=== PATIENT | female | born 1945 | race Caucasian/White ===

== ENCOUNTER 2017-04-21 17:27 | Emergency (ER) | payer MEDICARE, SELFPAY | END 2017-04-21 19:19 | disposition home or self-care (01) | PROVIDERS: Emergency Provider Emergency Medicine; Family Provider Internal Medicine; Visit Provider Emergency Medicine | DX: R21 Rash and other nonspecific skin eruption (principal) | CPT/HCPCS: 96372; 99201; J1030 ==

== ENCOUNTER 2020-11-25 11:50 | Emergency (ER) | payer MEDICARE, SELFPAY ==
[2020-11-25 12:37] VITALS: BP 118/79; PULSE 99; RESP 18; TEMP 37.3; O2SAT 96; BMI 23.4
--- NOTE | 2020-11-25 12:41 | HMH.EDUTC ---
[facility] [place] Clinical Impression: Encounter for laboratory testing for COVID-19 virus Disposition: Home, Self-Care Condition on Discharge: Good Instructions: DI for COVID-19 (Suspected or Confirmed ), Coronavirus Disease 2019, Preventing the Spread of Coronavirus Discharge Instructions Additional Instructions: *Monitor Temp, Over the counter Motrin or Tylenol as directed/as needed Tylenol every 4 hours and Motrin every 6 hours (as long as your family doctor has told you that you can take it) for fever or pain. and straight to ER if unable to lower temp less than 101.0 after medication given Follow up IMMEDIATELY for new or worsening symptoms or no Noticeable improvement over the next 48-72 hours. 911 for difficulty breathing or swallowing You were tested for today for COVID19 your test result should be back in the next 24-48 hours, you may call to the [facility] to see if your test results are back in the next 48 hours [phone] [facility] hours are 9am-9pm You was given a handout with instructions for Self Quarantine and Self isolation for while you wait on test results and what to do if they are positive If you are positive the Health Dept will be contacting you also Referrals: Provider,Referral, [Primary Care Provider] - As needed Time of Disposition: 13:03 Medical Decision Making - Rolly Inquiry Pt receiving controlled substance: No Rolly was queried for this patient: No Vital Signs: 11/25/20 12:37 Temperature 99.1 F Temperature Source Oral Pulse Rate [Left] 99 H Respiratory Rate 18 Blood Pressure [Right Arm] 118/79 Blood Pressure Mean [Right Arm] 92 02 Sat by Pulse Oximetry 96 Orders (Tests/Meds): ORDERS Category Date Time Status Covid-19 Nasal PCR ([facility]) Routine Lab 11/25/20 12:54 Received [facility] [place] HPI - General Stated complaint: covid exposure Time Seen by Provider: 11/25/20 12:41 Mode of Arrival: Ambulatory Source of Information: Patient Limitations: No Limitations Description of Symptoms (Recalled from Triage Doc. by RN): pt was exposed to covid positive in law last sat. pt started having a cough this am. HEENT Symptoms (Recalled from RN notes): No Resp Symptoms (Recalled from RN notes): Yes (cough) Skin Symptoms (Recalled from RN notes): No MS Symptoms (Recalled from RN notes): No Functional Status (Recalled from RN notes): na - History of Present Illness Provider Complaint: Patient states that she was around someone about a week ago that tested positive for COVID States that she started with a dry nagging cough today and wanted to get tested denies any other sympotms - Related Data Allergies Allergy/AdvReac Type Severity Reaction Status Date / Time No Known Allergies Allergy Unverified 04/16/17 14:56 - Worker's Comp Is this a Worker's Comp case?: No [facility] History - Hepatitis A Screen Drug use history?: No High risk sexual behaviors?: No History of sexually transmitted infection?: No Currently employed?: No Childcare worker?: No Do you have indoor plumbing?: Yes Do you have electricity?: Yes Attestation statement:: This patient has been screened for Hepatitis A risk factors. I have reviewed the patient's past medical history: Yes ROS Obtained: Yes All systems reviewed & no additional complaints, Yes Systems reviewed as appropriate & no additional complaints - Constitutional Constitutional: Reports system reviewed and no additional complaints, except as docu, Denies body ache, Denies chills, Denies fever(s) Physical Exam - General General appearance: alert, in no apparent distress - Respiratory Respiratory exam: Present: normal lung sounds bilaterally. Absent: respiratory distress - Cardiovascular Cardiovascular exam: Present: regular rate, normal rhythm. Absent: JVD - Abdominal Exam Abdominal exam: Present: soft, normal bowel sounds. Absent: distention, tenderness, guarding - Neurological Exam Neurological exam: Present: alert, oriented X3
[2020-11-25 13:03] VITALS: BP 115/74; PULSE 101; RESP 16; TEMP 37.2
--- NOTE | 2020-11-28 09:55 | PC.NURSE ---
PATIENT NOTIFIED OF POSITIVE COVID TEST AT THIS TIME
== END 2020-11-25 13:05 | disposition home or self-care (01) ==
PROVIDERS: Emergency Provider Nurse Practitioner
DX: U07.1 COVID-19 (principal)
CPT/HCPCS: G0463; 99202; U0003

== ENCOUNTER 2024-11-16 12:56 | Emergency (ER) | payer MEDICARE, SELFPAY ==
--- NOTE | 2024-11-16 13:06 | ED_ITS ---
Discharge Plan Disposition Patient Disposition: Home, Self-Care Condition: Good Referrals Follow up/Referrals: Toby Eddy MD [Staff Physician, General Surgery] - See instructions Jl Bull DO [Staff Physician, Family Practice] - See instructions Provider,MD Barak [Primary Care Provider, Medical] - See instructions Activity Restrictions/Add. Instructions Additional Instructions/Restrictions: As we discussed please follow-up with Dr. Bautista in [place]. If he is unable to see you fairly soon I have given you the name of Dr. Rebollar as an alternative. I have also referred you to general surgery for your inguinal hernia. And I have given you the name of Dr. Bull to establish primary care. If you have any persistent new or worsening signs or symptoms follow-up with them or return to the ER as needed. Clinical Impressions Clinical Impression: Mesenteric panniculitis, Elevated lipase Inguinal hernia Qualifiers: Obstruction and gangrene presence: without obstruction or gangrene Laterality: unilateral Instructions Patient Instructions: DI for Acute Abdominal Pain Print Language Print Language: Lao Discharge ED Provider: Desean Wood Adult HPI <NING Snow - Last Filed: 11/16/24 15:45> General Chief complaint: Abdominal Pain Stated complaint: Lower right abdominal pain, vomiting, Time Seen by Provider: 11/16/24 13:06 History of Present Illness HPI narrative: Patient presents for evaluation of right lower quadrant abdominal pain. Patient states that her last bowel movement was Saturday. She states that since then she has felt like there is a rock in my belly . Patient states that the pain is in the right lower quadrant. She has had nausea but no vomiting or diarrhea. She is passing gas. She denies any fever chills shortness of breath hemoptysis hematochezia melena hematemesis hematuria dysuria. Related Data Allergies Allergy/AdvReac Type Severity Reaction Status Date / Time No Known Allergies Allergy Unverified 04/16/17 14:56 [facility] <NING Snow - Last Filed: 11/16/24 15:45> [facility] Disclaimer: The information contained in this section may have been updated after the patient was seen, as this information can be updated by other users. Social History (Updated 11/16/24 @ 14:53 by NING Snow) Smoking Status: Never smoker alcohol intake: never current occupational status: retired Travel in the last 8 weeks?: None <NING Snow - Last Filed: 11/16/24 15:45> ROS Obtained: Yes Systems reviewed as appropriate & no additional complaints except as documented Physical Exam <NING Snow - Last Filed: 11/16/24 15:45> General General appearance: alert and in no apparent distress Respiratory Respiratory exam: Present normal lung sounds bilaterally Cardiovascular Cardiovascular exam: Present regular rate Neurological Exam Neurological exam: Present alert and oriented X3 Medical Decision Making <NING Snow - Last Filed: 11/16/24 15:45> Medical Records Medical records reviewed: Yes I reviewed the patient's medical records. Screening: Per USPSTF and CDC recommendations, given the prevalence of disease in our region, it is our hospital?s policy to screen for HIV and viral Hepatitis for all patients aged 18 and over and those with ongoing risk factors. Rolly Inquiry Pt receiving controlled substance: No Vital Signs: 11/16/24 13:11 11/16/24 13:30 11/16/24 14:00 Temperature 98.1 F Temperature Source Oral Pulse Rate 90 80 Pulse Rate [Left Radial] 100 H Respiratory Rate 20 18 Blood Pressure 115/67 134/66 Blood Pressure [Right Arm] 129/73 Blood Pressure Mean 84 77 Blood Pressure Mean [Right Arm] 91 Blood Pressure Source Blood Pressure Position 02 Sat by Pulse Oximetry 96 96 95 Oxygen Delivery Method Room Air 11/16/24 14:15 11/16/24 15:10 Temperature 98.0 F Temperature Source Oral Pulse Rate 80 74 Pulse Rate [Left Radial] Respiratory Rate 18 Blood Pressure 115/58 L 114/58 L Blood Pressure [Right Arm] Blood Pressure Mean 87 Blood Pressure Mean [Right Arm] Blood Pressure Source Automatic Cuff Blood Pressure Position Sitting 02 Sat by Pulse Oximetry 95 Oxygen Delivery Method Room Air Lab Data Lab results reviewed: Yes I reviewed the patient's lab results. Lab Results 11/16/24 13:12: WBC 8.3, RBC 4.71, Hgb 14.0, Hct 43.8, MCV 93.0, MCH 29.7, MCHC 32.0, RDW 13.5, Plt Count 276, MPV 8.9, Neut % (Auto) 74.2, Lymph % (Auto) 17.8, Bartholomew % (Auto) 7.3, Eos % (Auto) 0.4, Baso % (Auto) 0.1, Neut # (Auto) 6.2, Lymph # (Auto) 1.5, Bartholomew # (Auto) 0.6, Eos # (Auto) 0.0, Baso # (Auto) 0.0, PT 11.0, INR 0.99, Sodium 131 L, Potassium 3.4 L, Chloride 93 L, Carbon Dioxide 31 H, Anion Gap 10.4, BUN 28 H, Creatinine 0.80, Estimated Creat Clear 40, Estimated GFR 70, Est GFR ( Amer) 84, Glucose 104 H, Calcium 10.0, Total Bilirubin 1.3, AST 79 H, ALT 90 H, Alkaline Phosphatase 86, Total Protein 8.3 H, Albumin 4.6, Globulin 3.7 H, Albumin/Globulin Ratio 1.2, Lipase 4862 H, Procalcitonin 0.662, Urine Color Yellow, Urine Appearance Clear, Urine pH 6.0, Ur Specific [place] <= 1.005, Urine Protein Negative, Urine Glucose (UA) Negative, Urine Ketones Negative, Urine Blood Trace-i, Urine Nitrate Negative, Urine Bilirubin Negative, Urine Urobilinogen 0.2, Ur Leukocyte Esterase Negative, Urine RBC Occasional, Urine WBC None, Ur Squamous Epith Cells Occasional, Urine Bacteria None 11/16/24 13:12 11/16/24 13:12 Orders (Tests/Meds): ED MEDICATIONS Discontinued Medications Generic Name Dose Route Start Last Admin Trade Name Herminioq PRN Reason Stop Dose Admin Acetaminophen 1,000 mg 11/16/24 13:20 11/16/24 13:31 Acetaminophen 500mg Tab PO 11/16/24 13:21 1,000 mg ONCE ONE Administration Sodium Chloride 1,000 mls @ 999 mls/hr 11/16/24 13:20 11/16/24 14:00 Sod Chlor 0.9% 1000ml Bag IV 11/16/24 14:20 999 mls/hr .Q1H1M ONE Administration Iopamidol 75 ml 11/16/24 13:52 11/16/24 13:53 Iopamidol-370 (76%);100ml Bottle IV 11/16/24 13:53 75 ml ONCE ONE Administration Ketorolac Tromethamine 15 mg 11/16/24 13:20 11/16/24 13:30 Ketorolac 30mg/Ml Vial IV 11/16/24 13:21 15 mg ONCE ONE Administration Ondansetron HCl 4 mg 11/16/24 13:20 11/16/24 13:30 Ondansetron 4mg/2ml Vial IV 11/16/24 13:21 4 mg ONCE ONE Administration Sodium Chloride 10 ml 11/16/24 13:52 11/16/24 13:53 Sodium Chloride 0.9% 10ml Syr (Rad Only) IV 11/16/24 13:53 10 ml ONCE ONE Administration ORDERS Category Date Time Status CT abdomen pelvis w con Stat Cat Scan 11/16/24 13:20 Completed CBC w/Auto Diff [Complete Blood Count Auto Diff] Stat Lab 11/16/24 13:12 Completed CMP [Comprehensive Metabolic Panel] Stat Lab 11/16/24 13:12 Completed INR [Prothrombin Time INR] Stat Lab 11/16/24 13:12 Completed Lipase Stat Lab 11/16/24 13:12 Completed Procalcitonin Stat Lab 11/16/24 13:12 Completed UA [Urinalysis and Microscopic] Stat Lab 11/16/24 13:12 Completed Medical Decision Narrative: In summary patient is a 39-year-old female who presents to the emergency department for evaluation of right lower quadrant abdominal pain. Patient has no known medical problems is on no home medications and has not seen a doctor in many years . Patient has had a total abdominal hysterectomy but does not know if she still has an appendix. Patient is hemodynamically stable upon arrival, afebrile. Physical exam is remarkable for right-sided abdominal tenderness on palpation however she is more focally tender in the right lower quadrant however there is no rebound no guarding no rigidity bowel sounds are normal active.. Differential diagnosis includes constipation versus appendicitis versus bowel obstruction versus kidney stone versus urinary tract infection versus colitis etc. Initial workup will be conducted with hematologic labs urinalysis CT scan abdomen pelvis. Initial interventions include crystalloid bolus Tylenol Toradol Zofran. Initial workup reviewed by me and her hematologic labs significant for a normal white count with no neutrophilic shift, a sodium of 131 potassium 3.4 chloride of 93 CO2 of 31 BUN of 28 glucose of 104 AST is 79 ALT of 90 bilirubin is 1.3 alk phos 86 and her lipase is 4862 urinalysis is bland and my informal interpretation of her CT scan abdomen pelvis shows haziness of the mesentery which is nonspecific but could represent mesenteric panniculitis, there is no evidence of acute pancreatitis on imaging, her appendix is absent, she does not have a large stool burden, she has a nonobstructed left inguinal hernia all prior to radiology read. Please see final read for formal interpretation. Upon repeat evaluation reports improvement in her abdominal discomfort after initial intervention. Patient has no epigastric tenderness and is tolerating oral intake. Given this patient is appropriate for discharge with follow-up with her crushing foreman for further management and care of the mesenteric panniculitis, referral to general surgery for consultation about her left inguinal hernia which is asymptomatic and referral to Dr. Bull for establishing PCP. If patient has persistent new or worsening signs or symptoms patient was instructed to return to the emergency department for further evaluation and care. <Desean Wood MD - Last Filed: 11/16/24 19:45> Vital Signs: 11/16/24 13:11 11/16/24 13:30 11/16/24 14:00 Temperature 98.1 F Temperature Source Oral Pulse Rate 90 80 Pulse Rate [Left Radial] 100 H Respiratory Rate 20 18 Blood Pressure 115/67 134/66 Blood Pressure [Right Arm] 129/73 Blood Pressure Mean 84 77 Blood Pressure Mean [Right Arm] 91 Blood Pressure Source Blood Pressure Position 02 Sat by Pulse Oximetry 96 96 95 Oxygen Delivery Method Room Air 11/16/24 14:15 11/16/24 15:10 Temperature 98.0 F Temperature Source Oral Pulse Rate 80 74 Pulse Rate [Left Radial] Respiratory Rate 18 Blood Pressure 115/58 L 114/58 L Blood Pressure [Right Arm] Blood Pressure Mean 87 Blood Pressure Mean [Right Arm] Blood Pressure Source Automatic Cuff Blood Pressure Position Sitting 02 Sat by Pulse Oximetry 95 Oxygen Delivery Method Room Air Lab Data Lab Results 11/16/24 13:12: WBC 8.3, RBC 4.71, Hgb 14.0, Hct 43.8, MCV 93.0, MCH 29.7, MCHC 32.0, RDW 13.5, Plt Count 276, MPV 8.9, Neut % (Auto) 74.2, Lymph % (Auto) 17.8, Bartholomew % (Auto) 7.3, Eos % (Auto) 0.4, Baso % (Auto) 0.1, Neut # (Auto) 6.2, Lymph # (Auto) 1.5, Bartholomew # (Auto) 0.6, Eos # (Auto) 0.0, Baso # (Auto) 0.0, PT 11.0, INR 0.99, Sodium 131 L, Potassium 3.4 L, Chloride 93 L, Carbon Dioxide 31 H, Anion Gap 10.4, BUN 28 H, Creatinine 0.80, Estimated Creat Clear 40, Estimated GFR 70, Est GFR ( Amer) 84, Glucose 104 H, Calcium 10.0, Total Bilirubin 1.3, AST 79 H, ALT 90 H, Alkaline Phosphatase 86, Total Protein 8.3 H, Albumin 4.6, Globulin 3.7 H, Albumin/Globulin Ratio 1.2, Lipase 4862 H, Procalcitonin 0.662, Urine Color Yellow, Urine Appearance Clear, Urine pH 6.0, Ur Specific [place] <= 1.005, Urine Protein Negative, Urine Glucose (UA) Negative, Urine Ketones Negative, Urine Blood Trace-i, Urine Nitrate Negative, Urine Bilirubin Negative, Urine Urobilinogen 0.2, Ur Leukocyte Esterase Negative, Urine RBC Occasional, Urine WBC None, Ur Squamous Epith Cells Occasional, Urine Bacteria None Orders (Tests/Meds): ED MEDICATIONS Discontinued Medications Generic Name Dose Route Start Last Admin Trade Name Freq PRN Reason Stop Dose Admin Acetaminophen 1,000 mg 11/16/24 13:20 11/16/24 13:31 Acetaminophen 500mg Tab PO 11/16/24 13:21 1,000 mg ONCE ONE Administration Sodium Chloride 1,000 mls @ 999 mls/hr 11/16/24 13:20 11/16/24 14:00 Sod Chlor 0.9% 1000ml Bag IV 11/16/24 14:20 999 mls/hr .Q1H1M ONE Administration Iopamidol 75 ml 11/16/24 13:52 11/16/24 13:53 Iopamidol-370 (76%);100ml Bottle IV 11/16/24 13:53 75 ml ONCE ONE Administration Ketorolac Tromethamine 15 mg 11/16/24 13:20 11/16/24 13:30 Ketorolac 30mg/Ml Vial IV 11/16/24 13:21 15 mg ONCE ONE Administration Ondansetron HCl 4 mg 11/16/24 13:20 11/16/24 13:30 Ondansetron 4mg/2ml Vial IV 11/16/24 13:21 4 mg ONCE ONE Administration Sodium Chloride 10 ml 11/16/24 13:52 11/16/24 13:53 Sodium Chloride 0.9% 10ml Syr (Rad Only) IV 11/16/24 13:53 10 ml ONCE ONE Administration ORDERS Category Date Time Status CT abdomen pelvis w con Stat Cat Scan 11/16/24 13:20 Completed CBC w/Auto Diff [Complete Blood Count Auto Diff] Stat Lab 11/16/24 13:12 Completed CMP [Comprehensive Metabolic Panel] Stat Lab 11/16/24 13:12 Completed INR [Prothrombin Time INR] Stat Lab 11/16/24 13:12 Completed Lipase Stat Lab 11/16/24 13:12 Completed Procalcitonin Stat Lab 11/16/24 13:12 Completed UA [Urinalysis and Microscopic] Stat Lab 11/16/24 13:12 Completed Medical Decision Narrative: In summary patient is a 39-year-old female who presents to the emergency department for evaluation of right lower quadrant abdominal pain. Patient has no known medical problems is on no home medications and has not seen a doctor in many years . Patient has had a total abdominal hysterectomy but does not know if she still has an appendix. Patient is hemodynamically stable upon arrival, afebrile. Physical exam is remarkable for right-sided abdominal tenderness on palpation however she is more focally tender in the right lower quadrant however there is no rebound no guarding no rigidity bowel sounds are normal active.. Differential diagnosis includes constipation versus appendicitis versus bowel obstruction versus kidney stone versus urinary tract infection versus colitis etc. Initial workup will be conducted with hematologic labs urinalysis CT scan abdomen pelvis. Initial interventions include crystalloid bolus Tylenol Toradol Zofran. Initial workup reviewed by me and her hematologic labs significant for a normal white count with no neutrophilic shift, a sodium of 131 potassium 3.4 chloride of 93 CO2 of 31 BUN of 28 glucose of 104 AST is 79 ALT of 90 bilirubin is 1.3 alk phos 86 and her lipase is 4862 urinalysis is bland and my informal interpretation of her CT scan abdomen pelvis shows haziness of the mesentery which is nonspecific but could represent mesenteric panniculitis, there is no evidence of acute pancreatitis on imaging, her appendix is absent, she does not have a large stool burden, she has a nonobstructed left inguinal hernia all prior to radiology read. Please see final read for formal interpretation. Upon repeat evaluation reports improvement in her abdominal discomfort after initial intervention. Patient has no epigastric tenderness and is tolerating oral intake. Given this patient is appropriate for discharge with follow-up with her crushing foreman for further management and care of the mesenteric panniculitis, referral to general surgery for consultation about her left inguinal hernia which is asymptomatic and referral to Dr. Bull for establishing PCP. If patient has persistent new or worsening signs or symptoms patient was instructed to return to the emergency department for further evaluation and care. I was consulted by the IRENE, and we discussed the complexity of the problems being addressed. I approve the treatment and management plan for this patient's care in the emergency department, thus performing a substantive portion of the medical decision making. Desean Wood MD Critical Care <NING Snow - Last Filed: 11/16/24 15:45> Critical Care Time Critical Care Time: No
[2024-11-16 13:11] VITALS: BP 129/73; PULSE 100; RESP 20; TEMP 36.7; O2SAT 96; BMI 23.4
--- NOTE | 2024-11-16 13:20 | CT_ITS ---
FINAL REPORT TECHNIQUE: After the administration of intravenous contrast, axial images were obtained through the abdomen and pelvis by computed tomography. This study was performed with technique to keep radiation doses as low as reasonably achievable, (ALARA). Individualized dose reduction techniques using automated exposure control or adjustment of the MA and/or KV according to the patient's size were employed. CLINICAL HISTORY: Right lower quadrant abdominal pain FINDINGS: Abdomen: The lung bases are clear. The liver is normal in size and attenuation. The spleen and gallbladder are unremarkable. The adrenals are normal. The pancreas is unremarkable. The kidneys enhance appropriately. There is fullness of the renal pelvises bilaterally, suspected parapelvic renal cysts as opposed to hydronephrosis. The aorta is normal in caliber. There is no free fluid or adenopathy. Hazy density is seen at the mesenteric root which may represent mesenteric panniculitis. Acute inflammatory process such as pancreatitis is considered much less likely. There is no evidence of bowel obstruction. Pelvis: The appendix is not identified and may have been removed at time of hysterectomy. The urinary bladder is unremarkable. There is no free fluid or adenopathy. There is a small left inguinal hernia extending to the left labia. IMPRESSION: No bowel obstruction. Hazy density in the mesentery, favor mesenteric panniculitis. Reviewed, Interpreted and Dictated by Leeroy Armendariz MD Transcribed by Katie Peña Authenticated and [facility]
[2024-11-16 13:25] LABS: Microscopic, Urine URINE MICROSCOPIC (MICROSCOPIC)
[2024-11-16 13:29] LABS: Albumin Level 4.6 g/dl (3.5-5.0); Chloride 93 mmol/L (98-107); Potassium 3.4 mmoL/L (3.5-5.1); Sodium 131 mmol/L (136-145)
[2024-11-16 13:30] VITALS: BP 115/67; PULSE 90; RESP 18; O2SAT 96
[2024-11-16] MEDS: ONDANSETRON 4MG/2ML VIAL 4 MG IV (13:30)
[2024-11-16] MEDS: KETOROLAC 30MG/ML VIAL 15 MG IV (13:30)
[2024-11-16 13:31] LABS: Blood Urea Nitrogen 28 mg/dl (7-17); Creatinine Clearance Estimated 40 mL/min (50-200); Creatinine,Serum 0.80 mg/dl (0.52-1.04); Estimated Glomerular Filt Rate 70 ml/min (>60); GFR (African American) 84 ML/MIN (>60); Hematocrit 43.8 % (37.0-47.0); Hemoglobin 14.0 g/dL (12.2-16.2); Immature Granulocytes % 0.2 %; Mean Corpuscular HGB Conc 32.0 g/dL (31.8-35.4); Mean Corpuscular Hemoglobin 29.7 pg (27.0-31.2); Mean Corpuscular Volume 93.0 fl (81-99); Nucleated Red Blood Cells % 0 %; Platelet Count 276 K/mm3 (142-424); Red Blood Count 4.71 M/mm3 (4.20-5.40); Red Cell Distribution Width-SD 45.9 fL; White Blood Count 8.3 K/mm3 (4.8-10.8)
[2024-11-16] MEDS: ACETAMINOPHEN 500MG TAB 1000 MG PO (13:31)
[2024-11-16 13:32] LABS: Alanine Aminotransferase 90 U/L (12-78); Albumin/Globulin Ratio 1.2 (1.1-1.8); Alkaline Phosphatase 86 U/L (38-126); Anion Gap 10.4 mEq/L (5-15); Aspartate Amino Transferase 79 U/L (14-36); Bilirubin,Total 1.3 mg/dl (0.2-1.3); Bilirubin,Urine Negative (Negative); Carbon Dioxide 31 mmol/L (22.0-30.0); Color,Urine YELLOW (Yellow); Globulin 3.7 g/dL (1.3-3.2); Glucose,Urine (UA) Negative (Negative); Ketones,Urine Negative (Negative); Leukocyte Esterase,Urine Negative (Negative); PH,Urine 6.0 (5.0-8.5); Protein,Urine Negative (Negative); Specific Gravity, Urine <= 1.005 (1.005-1.030); Total Protein,Serum 8.3 g/dl (6.3-8.2); Urobilinogen,Urine 0.2 EU/dl (0.2)
[2024-11-16 13:33] LABS: Calcium 10.0 mg/dl (8.4-10.2); Glucose 104 mg/dl (74-100)
[2024-11-16 13:42] LABS: RBC,Urine Occasional #/hpf (0-3)
[2024-11-16 13:43] LABS: Squamous Epithelial Cell,Urine Occasional #/hpf (0-5)
[2024-11-16] MEDS: SODIUM CHLORIDE 0.9% 10ML SYR (RAD ONLY) 10 ML IV (13:53)
[2024-11-16] MEDS: IOPAMIDOL-370 (76%);100ML BOTTLE 75 ML IV (13:53)
[2024-11-16 14:00] VITALS: BP 134/66; PULSE 80; O2SAT 95
[2024-11-16] MEDS: 0.9 % SODIUM CHLORIDE 1000ML 1,000 ML 999 ML IV (14:00)
--- NOTE | 2024-11-16 14:08 | PC.NURSE ---
pt returned from ct
[2024-11-16 14:15] VITALS: BP 115/58; PULSE 80; O2SAT 95
[2024-11-16 15:10] VITALS: BP 114/58; PULSE 74; RESP 18; TEMP 36.7; O2SAT 95
[2024-11-16 15:14] LABS: INR 0.99 (0.9-1.1); Lipase 4862 U/L (23-300); Prothrombin Time 11.0 seconds (10.1-12.5)
--- NOTE | 2024-11-16 15:36 | PC.NURSE ---
critical called from MD tigre notifed
[2024-11-16 17:21] LABS: Procalcitonin 0.662 ng/mL (0.0-2.0)
== END 2024-11-16 15:10 | disposition home or self-care (01) ==
PROVIDERS: Physician Assistant; Emergency Provider Student in an Organized Health Care Education/Training Program
DX: K40.90 Unilateral inguinal hernia, without obstruction or gangrene, not specified as recurrent (principal); R74.8 Abnormal levels of other serum enzymes; K65.4 Sclerosing mesenteritis
CPT/HCPCS: 74177; 80053; 81001; 83690; 84145; 85025; 85610; 96361; 96374; 96375; 99285; J1885; J2405; J7030; Q9967

== ENCOUNTER 2024-11-24 15:17 | Outpatient (CLI) | payer MEDICARE, SELFPAY ==
[2024-11-24 18:37] LABS: Albumin Level 3.5 g/dl (3.5-5.0); Chloride 100 mmol/L (98-107)
[2024-11-24 18:38] LABS: Potassium 4.1 mmoL/L (3.5-5.1); Sodium 136 mmol/L (136-145)
[2024-11-24 18:40] LABS: Alanine Aminotransferase 21 U/L (12-78); Alkaline Phosphatase 92 U/L (38-126); Anion Gap 7.1 mEq/L (5-15); Aspartate Amino Transferase 27 U/L (14-36); Blood Urea Nitrogen 19 mg/dl (7-17); Carbon Dioxide 33 mmol/L (22.0-30.0); Creatinine,Serum 0.60 mg/dl (0.52-1.04); Estimated Glomerular Filt Rate 97 ml/min (>60); GFR (African American) 117 ML/MIN (>60)
[2024-11-24 18:41] LABS: Albumin/Globulin Ratio 0.9 (1.1-1.8); Bilirubin,Total < 0.1 mg/dl (0.2-1.3); Calcium 10.1 mg/dl (8.4-10.2); Globulin 3.7 g/dL (1.3-3.2); Glucose 85 mg/dl (74-100); Lipase 420 U/L (23-300); Total Protein,Serum 7.2 g/dl (6.3-8.2)
== END 2024-11-24 23:59 | disposition home or self-care (01) ==
LOC: LAB.DROPOF 11-25 11:14
PROVIDERS: PCP Internal Medicine; Visit Provider Internal Medicine
DX: R74.8 Abnormal levels of other serum enzymes (principal); R74.01 Elevation of levels of liver transaminase levels
CPT/HCPCS: 80053; 83690

== ENCOUNTER 2024-12-16 07:23 | Outpatient (CLI) | payer MEDICARE, SELFPAY ==
--- NOTE | 2024-12-16 07:30 | US_ITS ---
FINAL REPORT CLINICAL HISTORY: Pancreatitis COMPARISON: CT of the abdomen and pelvis dated 11/16/2024 FINDINGS: Sonographic images of the right upper quadrant were obtained. The pancreas is partially obscured.The liver has an unremarkable appearance. Gallstones are present in the gallbladder. There is no evidence of biliary ductal dilatation.The common duct measures 2 mm. No gallbladder wall thickening or pericholecystic fluid is identified. Limited images of the right kidney are unremarkable. IMPRESSION: Gallstones are present in the gallbladder without evidence of biliary ductal dilatation, gallbladder wall thickening or pericholecystic fluid. The pancreas is difficult to visualize but no gross abnormality is identified. Reviewed, Interpreted and Dictated by Eladio Priest MD Transcribed by Poppy Elkins Authenticated and [facility]
== END 2024-12-16 23:59 | disposition home or self-care (01) ==
LOC: RAD 07:24
PROVIDERS: PCP Internal Medicine; Visit Provider Internal Medicine
DX: K80.20 Calculus of gallbladder without cholecystitis without obstruction (principal); K85.90 Acute pancreatitis without necrosis or infection, unspecified
CPT/HCPCS: 76705

== ENCOUNTER 2025-01-27 20:45 | Emergency (ER) | payer MEDICARE, SELFPAY ==
[2025-01-27 21:30] VITALS: BP 168/77; PULSE 90; RESP 16; TEMP 37; O2SAT 97; BMI 21.2
--- OUTSIDE RECORDS SUMMARY | 2025-01-27 21:45 | XMS_ITS | Data Portability ---
Author Organization [facility] ADMIN Address [address] [place] [id number] Assessment No assessment recorded. Plan of Treatment Reminders Order Date Submit Date Provider Last Modified By Organization Details Last Modified Time Details Appointments None recorded. Lab None recorded. Referral None recorded. Procedures sigmoidosc opy, flexible (PROC) [address] , [facility] [address] [facility] [address], [place], [address], 16:34:15 Surgeries None recorded. Imaging None recorded. Medication Orders None recorded. Patient TargetsNo targets recorded. Patient InstructionsNo instructions recorded. Reason for Referral None Reported. Results Created Date Observation Date Name Description Value Unit Range Abnormal Flag Note LastModifiedBy Organization Detail LastModifiedTime Result Notes None recorded. Procedures Surgical History Date Name Laterality Status Provider Name and Address Organization Details Recorded Time 08/09/19 24 Flexible Sigmoidoscopy completed Aleida Hernandez [facility] [place] 08/20/2023 16:34:57 Hysterectomy completed Heike Lopez [facility] [place] 12/18/2022 09:59:59 Imaging Results None recorded. Procedure Notes None recorded. Medical Equipment None Reported. Allergies No known drug allergies Medications Name Sig Start Date Stop Date Status Note LastModified by Organization Details LastModified Time Miralax 17 gram/dose oral powder Take 17 g by oral route as directed for 2 days. 12/18 completed Not Available Not Available Not Available Dulcolax (bisacodyl ) 5 mg tablet,del ayed release Take 2 tablets by oral route as directed for 1 day. 12/18 completed Not Available Not Available Not Available Vitals Date Recorded Body height Body mass index (BMI) Body weight Body temperature Oxygen saturation Oxygen saturation in Arterial blood by Pulse oximetry Heart rate Systolic And Diastolic Provider Name and Address Organization Details Last Updated DateTime 3 152.4 cm 22.7 kg/m2 83997.4 3 g 97 [degF] 97 % 97 % 89 /min 142/76 mm[Hg] Heike Lopez [place] - [place] [facility] [place] 3 09:58:55 Social History None recorded. Functional Status Question Answer Note LastModified by Organization D etails LastModified Time What is your level of alcohol consumption? None [email or web address] Information not available 12/18/2022 Mental Status None recorded. Family History Nothing Reported. Medical History Condition Response Coronary Artery Disease N None N Gout N Colon Cancer N Kidney Stones N Hyperthyroidism N Hypothyroidism N Depression N COPD N Osteoporosis/Osteopenia N Diverticulitis/Diverticulosis N Colon Polyps N Anxiety Disorder N Diabetes N Bleeding Disorder N Arthritis N Seizures/Epilepsy N Tuberculosis N Hyperlipidemia N Cancer N Stroke N Asthma N Sleep Apnea N GERD/Reflux N Hepatitis N Liver Disease N Cirrhosis N Heart Disease N Hypertension N Kidney Disease N Gynecological HistoryNo gynecological history recorded. Obstetrics History GPAL:G 0 P 0 0 0 0 Past Encounters Encounter ID Performer Location Encounter Start Date Encounter Closed Date Diagnosis/Indication Diagnosis SNOMED-CT Code Diagnosis ICD10 Code Diagnosis IMO Codes Diagnosis Note [id number] [facility] [address] [place] [address] GAEL ANDRADE [id number] 12/18/2022 09:29:50 12/18/2022 10:26:55 Tubulovillous adenoma of rectum 439087915 D12.8 Plan for flexible sigmoidosc opy in 6 months to evaluate. Health Concerns Section Related Observation LastModified by Organization Detai ls LastModified Time None Recorded Concern Status LastModified by Organization Details LastModified Time None Recorded Advance Directives Directive None Recorded Payers Insurance Date Sequence Insurance Name Policy Number Policy [place] Covered Member ID [place] Member ID Guarantor Name 11/16/2023 1 [place] [id number] Merissa William [id number] Merissa William 12/05/2022 1 [place] Merissa William [id number] Merissa William Notes Date Note Type Note Provider Name and Address Organization Details Recorded Time 12/18/2022 text/html Patient . A to go over results after recent colonoscopy. 1.2 cm tubulovillous adenoma removed, clear margins. She is doing well and has no complaints. We will need to repeat a flexible sigmoidoscopy in 6 months. Flynn Bautista M.D [address] [place] [address], [address], [place], [address], [facility] - [facility] [place] 12/18/2022 11:21:19 OBGyn Episode No OBEpisode recorded.
--- NOTE | 2025-01-27 22:43 | PC.NURSE ---
jen collected and sent to the lab at this time
[2025-01-27 23:03] LABS: Hematocrit 37.2 % (37.0-47.0); Hemoglobin 11.8 g/dL (12.2-16.2); Immature Granulocytes % 0.2 %; Mean Corpuscular HGB Conc 31.7 g/dL (31.8-35.4); Mean Corpuscular Hemoglobin 29.8 pg (27.0-31.2); Mean Corpuscular Volume 93.9 fl (81-99); Nucleated Red Blood Cells % 0 %; Platelet Count 230 K/mm3 (142-424); Red Blood Count 3.96 M/mm3 (4.20-5.40); Red Cell Distribution Width-SD 45.2 fL; White Blood Count 4.9 K/mm3 (4.8-10.8)
[2025-01-27 23:08] LABS: Microscopic, Urine URINE MICROSCOPIC (MICROSCOPIC)
[2025-01-27 23:09] LABS: Bilirubin,Urine Negative (Negative); Color,Urine YELLOW (Yellow); Glucose,Urine (UA) Negative (Negative); Ketones,Urine 1+ (Negative); Leukocyte Esterase,Urine Negative (Negative); PH,Urine 6.0 (5.0-8.5); Protein,Urine Negative (Negative); Specific Gravity, Urine 1.015 (1.005-1.030); Urobilinogen,Urine 0.2 EU/dl (0.2)
[2025-01-27 23:09] LABS: Alanine Aminotransferase 19 U/L (12-78); Albumin Level 4.0 g/dl (3.5-5.0); Albumin/Globulin Ratio 1.4 (1.1-1.8); Alkaline Phosphatase 96 U/L (38-126); Anion Gap 12.0 mEq/L (5-15); Aspartate Amino Transferase 31 U/L (14-36); Bilirubin,Total 0.6 mg/dl (0.2-1.3); Blood Urea Nitrogen 23 mg/dl (7-17); Calcium 9.4 mg/dl (8.4-10.2); Carbon Dioxide 27 mmol/L (22.0-30.0); Chloride 103 mmol/L (98-107); Creatinine Clearance Estimated 37 mL/min (50-200); Creatinine,Serum 0.70 mg/dl (0.52-1.04); Estimated Glomerular Filt Rate 81 ml/min (>60); GFR (African American) 98 ML/MIN (>60); Globulin 2.8 g/dL (1.3-3.2); Glucose 95 mg/dl (74-100); INR 0.98 (0.9-1.1); Lipase 87 U/L (23-300); Potassium 4.0 mmoL/L (3.5-5.1); Prothrombin Time 10.9 seconds (10.1-12.5); Sodium 138 mmol/L (136-145); Total Protein,Serum 6.8 g/dl (6.3-8.2)
[2025-01-27 23:32] LABS: Troponin I < 0.01 ng/ml (0.00-0.034)
[2025-01-27 23:34] LABS: WBC,Urine Occasional #/hpf (0-3)
--- NOTE | 2025-01-27 23:59 | HMH.EDGENADL ---
Discharge Plan Disposition Patient Disposition: Home, Self-Care Prescriptions Prescriptions: No Action No Known Home Medications Referrals Follow up/Referrals: Jl Bull DO [Primary Care Provider, Family Practice] - See instructions Activity Restrictions/Add. Instructions Additional Instructions/Restrictions: Please follow-up with your primary care provider and with your general surgery team. Please return to the emergency department if you develop any new or worsening symptoms or become concerned for your health. Clinical Impressions Clinical Impression: Symptomatic cholelithiasis Instructions Patient Instructions: DI for Acute Abdominal Pain Print Language Print Language: Kiswahili Discharge ED Provider: Laureano Land [facility] Adult HPI General Chief complaint: Abdominal Pain Stated complaint: abdominal pain,madelyn,feverish,cold Time Seen by Provider: 01/27/25 23:59 Mode of Arrival: Ambulatory Description of Symptoms (Recalled from ER Triage Doc. by RN): Pt presents with c/o lower abd pain with HX of gallstones and surgery scheduled x1 week to have them removed. Pt reports associated diarrhea with no N/V History of Present Illness HPI narrative: 79-year-old female with history of prior gallstone pancreatitis presents for right upper quadrant pain. She reports it was worse earlier today but is now significantly improved. She did have an episode of diarrhea earlier but no associated nausea or vomiting. She has an outpatient appointment scheduled to have her gallbladder removed next with general surgery. She reports her pain has essentially resolved. She denies any chest pain shortness of breath headache vision changes or any other symptoms. Related Data Home Medications ?Medication ?Instructions ?Recorded ?Confirmed No Known Home Medications 01/20/25 01/20/25 Allergies Allergy/AdvReac Type Severity Reaction Status Date / Time No Known Allergies Allergy Verified 01/20/25 14:38 [facility] Disclaimer: The information contained in this section may have been updated after the patient was seen, as this information can be updated by other users. Medical History Glaucoma, left eye Muscle spasm Bowel obstruction 2015 Surgical History H/O tooth extraction History of tonsillectomy and adenoidectomy History of appendectomy History of partial hysterectomy 03/1980 Social History Smoking Status: Never smoker alcohol intake: never current occupational status: retired Travel in the last 8 weeks?: None Have you lived/traveled outside US in past 30 days?: No Contact w/someone who lives/traveled outside US past 30 days?: No Exposure to someone with infectious disease in past 14 days?: No Do you have a fever (greater than 100.4 F or 38 C)?: No Have you tested positive for COVID-19?: No Exposed to someone with COVID-19 in past 14 days?: No Do you have a sore throat?: No Do you have a cough?: No Do you have any weakness?: No Do you have any diarrhea?: No Are you experiencing any unusual bleeding?: No Do you have any muscle aches/pain?: No Do you have any abdominal pain?: No Are you experiencing loss of taste or smell?: No Other Medical History Have you received the Pneumonia Vaccine: Yes ROS Obtained: Yes All systems reviewed & no additional complaints except as documented Physical Exam General General appearance: alert and in no apparent distress Head Head exam: atraumatic and normocephalic Eye Eye exam: Present normal appearance, PERRL and EOMI ENT ENT exam: Present normal oropharynx and normal external ear exam Neck Neck exam: Present normal inspection and full ROM Chest Chest inspection: Present normal inspection and symmetric chest wall rise; Absent tenderness Respiratory Respiratory exam: Present normal lung sounds bilaterally; Absent respiratory distress Cardiovascular Cardiovascular exam: Present regular rate and normal rhythm Abdominal Exam Abdominal exam: Present soft; Absent distention, tenderness or guarding Extremities Exam Extremities exam: Present normal inspection; Absent edema or joint swelling Back Exam Back exam: Present normal inspection; Absent tenderness Neurological Exam Neurological exam: Present alert and oriented X3; Absent motor sensory deficit Psychiatric Psychiatric exam: Present normal affect and normal mood Skin Skin exam: Present warm, dry and normal color Lymphatic Lymphatic Findings: no adenopathy Medical Decision Making Medical Records Medical records reviewed: Yes I reviewed the patient's medical records. Screening: Per USPSTF and CDC recommendations, given the prevalence of disease in our region, it is our hospital?s policy to screen for HIV and viral Hepatitis for all patients aged 18 and over and those with ongoing risk factors. Rolly Inquiry Pt receiving controlled substance: No Rolly was queried for this patient: No Vital Signs: 01/27/25 21:30 01/28/25 00:20 Temperature 98.6 F 98.6 F Temperature Source Oral Pulse Rate 84 Pulse Rate [Radial] 90 Respiratory Rate 16 16 Blood Pressure 170/86 H Blood Pressure [Right Arm] 168/77 H Blood Pressure Mean [Right Arm] 107 Blood Pressure Position [Right Arm] Sitting 02 Sat by Pulse Oximetry 97 Oxygen Delivery Method Room Air Room Air Lab Data Lab results reviewed: Yes I reviewed the patient's lab results. Lab Results 01/27/25 22:42: WBC 4.9, RBC 3.96 L, Hgb 11.8 L, Hct 37.2, MCV 93.9, MCH 29.8, MCHC 31.7 L, RDW 13.1, Plt Count 230, MPV 8.8, Neut % (Auto) 57.4, Lymph % (Auto) 29.1, [place] % (Auto) 12.3 H, Eos % (Auto) 0.8, Baso % (Auto) 0.2, Neut # (Auto) 2.8, Lymph # (Auto) 1.4, [place] # (Auto) 0.6, Eos # (Auto) 0.0, Baso # (Auto) 0.0, PT 10.9, INR 0.98, Sodium 138, Potassium 4.0, Chloride 103, Carbon Dioxide 27, Anion Gap 12.0, BUN 23 H, Creatinine 0.70, Estimated Creat Clear 37, Estimated GFR 81, Est GFR ( Amer) 98, Glucose 95, Calcium 9.4, Total Bilirubin 0.6, AST 31, ALT 19, Alkaline Phosphatase 96, Troponin I < 0.01, Total Protein 6.8, Albumin 4.0, Globulin 2.8, Albumin/Globulin Ratio 1.4, Lipase 87 01/27/25 23:03: Urine Color Yellow, Urine Appearance Clear, Urine pH 6.0, Ur Specific [place] 1.015, Urine Protein Negative, Urine Glucose (UA) Negative, Urine Ketones 1+, Urine Blood Negative, Urine Nitrate Negative, Urine Bilirubin Negative, Urine Urobilinogen 0.2, Ur Leukocyte Esterase Negative, Urine RBC 3-5, Urine WBC Occasional, Ur Squamous Epith Cells 3-5 01/27/25 22:42 01/27/25 22:42 Orders (Tests/Meds): ORDERS Category Date Time Status POCUS Point of Care (ER Only) Stat Exams 01/28/25 00:26 Ordered Complete Blood Count Auto Diff Stat Lab 01/27/25 22:42 Completed Comprehensive Metabolic Panel Stat Lab 01/27/25 22:42 Completed Lipase Stat Lab 01/27/25 22:42 Completed Prothrombin Time INR Stat Lab 01/27/25 22:42 Completed Troponin I Q3H Lab 01/28/25 01:30 Ordered Troponin I Q3H Lab 01/28/25 04:30 Ordered Troponin I Stat Lab 01/27/25 22:42 Completed Urinalysis and Microscopic Stat Lab 01/27/25 23:03 Completed Medical Decision Narrative: 79-year-old female with history of gallstone pancreatitis, still has her gallbladder presents for right upper quadrant pain earlier today that is now essentially resolved.. History was obtained via interactive discussion with patient, family, chart review. On arrival, patient is [afebrile, hemodynamically stable, satting appropriately, alert, oriented x4, GCS 15], moving all extremities spontaneously. Full physical exam performed and significant for soft abdomen with no abdominal tenderness Differential includes but is not limited to cholecystitis, symptomatic cholelithiasis, choledocho, pancreatitis, gastroenteritis. Workup initiated including CBC CMP lipase troponin [id number] ultrasound. On [id number] ultrasound, patient has cholelithiasis without evidence of cholecystitis.. On re-evaluation, patient continues to be pain-free. Her blood pressure is elevated at 170 systolic, this is abnormal for patient. She has no symptoms concerning for hypertensive emergency. Laboratory workup independently interpreted by me and significant for normal LFTs, normal white count, normal lipase.. CT scan was considered, but deemed unnecessary due to reassuring bedside ultrasound. Given patient history, exam and workup, patient's presentation most likely represents symptomatic cholelithiasis and asymptomatic hypertension. She is discharged in stable condition with return precautions.. Procedures Risk/Benefits of Procedure(s) Were Explained: Yes Limited Ultrasound Indication:: Limited RUQ ultrasound Indication: Abdominal pain Identified structures: -Gallbladder -Gallbladder wall -Common bile duct -Liver Findings: Sonographic Muniz sign: Absent Gallstones: Present Sludge: Absent Pericholecystic fluid: Absent Maximal GB wall thickness (mm): [normal is </= 3mm] 2 mm Normal Common bile duct width (mm): [normal is </= 6mm] Unable to visualize Gallbladder width (cm): 1.95 cm Normal Gallbladder length (cm): [normal is < 10cm] 6.5 cm, normal Impression: Cholelithiasis without evidence of cholecystitis Images were saved to permanent archive The study was technically adequate CPT 90138-79 This study was performed by me, Laureano Land MD, and I personally interpreted all images/videos. Critical Care Critical Care Time Critical Care Time: No
[2025-01-28 00:20] VITALS: BP 170/86; PULSE 84; RESP 16; TEMP 37; O2SAT 100
== END 2025-01-28 00:28 | disposition home or self-care (01) ==
PROVIDERS: Student in an Organized Health Care Education/Training Program; Emergency Provider Emergency Medicine; PCP Internal Medicine
DX: R10.11 Right upper quadrant pain (principal); K80.20 Calculus of gallbladder without cholecystitis without obstruction
CPT/HCPCS: 80053; 81001; 83690; 84484; 85025; 85610; 99284

== ENCOUNTER 2025-02-02 11:23 | Outpatient (CLI) | payer MEDICARE, SELFPAY ==
[2025-02-02 08:49] VITALS: BMI 22.2
--- NOTE | 2025-02-02 11:53 | ECG_ITS ---
APPROVED REPORT Exam: Resting ECG HR:77 bpm ECG Measurements Heart Rate 77 AXES UT 193 P 54 QRSd 86 QRS -8 QT 393 T 75 QTc 425 Conclusion SINUS RHYTHM POSSIBLE LEFT ATRIAL ENLARGEMENT [-0.1mV P-WAVE IN V1/V2] POSSIBLE RIGHT VENTRICULAR CONDUCTION DELAY [RSR (QR) IN V1/V2] BORDERLINE ECG UNCONFIRMED REPORT Electronically signed by : Brian Abreu MD 02/02/2025 17:04:48
[2025-02-02 11:59] LABS: Hematocrit 39.4 % (37.0-47.0); Hemoglobin 12.7 g/dL (12.2-16.2); Immature Granulocytes % 0.2 %; Mean Corpuscular HGB Conc 32.2 g/dL (31.8-35.4); Mean Corpuscular Hemoglobin 30.1 pg (27.0-31.2); Mean Corpuscular Volume 93.4 fl (81-99); Nucleated Red Blood Cells % 0 %; Platelet Count 261 K/mm3 (142-424); Red Blood Count 4.22 M/mm3 (4.20-5.40); Red Cell Distribution Width-SD 45.1 fL; White Blood Count 4.1 K/mm3 (4.8-10.8)
[2025-02-02 12:04] LABS: Alanine Aminotransferase 23 U/L (12-78); Albumin Level 4.1 g/dl (3.5-5.0); Albumin/Globulin Ratio 1.3 (1.1-1.8); Alkaline Phosphatase 90 U/L (38-126); Anion Gap 13.1 mEq/L (5-15); Aspartate Amino Transferase 31 U/L (14-36); Bilirubin,Total 0.4 mg/dl (0.2-1.3); Blood Urea Nitrogen 20 mg/dl (7-17); Calcium 9.6 mg/dl (8.4-10.2); Carbon Dioxide 28 mmol/L (22.0-30.0); Chloride 103 mmol/L (98-107); Creatinine Clearance Estimated 38 mL/min (50-200); Creatinine,Serum 0.70 mg/dl (0.52-1.04); Estimated Glomerular Filt Rate 81 ml/min (>60); GFR (African American) 98 ML/MIN (>60); Globulin 3.1 g/dL (1.3-3.2); Glucose 96 mg/dl (74-100); Potassium 4.1 mmoL/L (3.5-5.1); Sodium 140 mmol/L (136-145); Total Protein,Serum 7.2 g/dl (6.3-8.2)
== END 2025-02-02 23:59 | disposition home or self-care (01) ==
LOC: PREOP 11:24
PROVIDERS: PCP Internal Medicine; Visit Provider Surgery
DX: Z01.810 Encounter for preprocedural cardiovascular examination (principal); Z01.812 Encounter for preprocedural laboratory examination; R94.31 Abnormal electrocardiogram [ECG] [EKG]
CPT/HCPCS: 80053; 85025; 93005

== ENCOUNTER 2025-02-04 06:03 | Day surgery (SDC) | payer MEDICARE, SELFPAY ==
[2025-02-02 13:58] VITALS: BMI 21.2
[2025-02-04] VITALS (10 sets, daily range): BP systolic 140–198; BP diastolic 63–96; PULSE 55–71; RESP 12–17; TEMP 36.1–43; O2SAT 94–99
--- NOTE | 2025-02-04 06:31 | EXP.OP.NOTE ---
Date of procedure: 02/04/25 Pre-op Diagnosis:: Biliary pancreatitis (resolved) Post-op Diagnosis:: Same Procedure performed:: Laparoscopic cholecystectomy Surgeon:: Butch Navarro MD Anesthesia: GETWon Estimated blood loss (mL): 15 Operative findings:: Infundibular thickening Operative note:: After informed consent was obtained, the patient was taken to the operating room and placed in the supine position. General anesthesia was induced and the abdomen was prepped and draped in a sterile fashion. After infiltration with local anesthetic an infraumbilical incision was made. A Veress needle was placed in position. The abdomen was insufflated. A 5 mm optical trocar was placed in position. Under direct visualization, a 12 mm trocar was placed in the subxiphoid position and 2 additional 5 mm trocars were placed in the right upper quadrant. The gallbladder was elevated up and over the liver margin. The tissue around the cystic duct was carefully dissected. 3 clips were placed proximally and the duct was transected with harmonic margarita. Harmonic margarita were then utilized to dissect the gallbladder away from the liver margin with careful attention to the control of the cystic artery. The gallbladder was placed in a retrieval bag and removed through the subxiphoid trocar site. The right upper quadrant was thoroughly irrigated. No active bleeding or bile leak was noted. Fascia at the subxiphoid trocar site was reapproximated utilizing 0 Ethibond. The remaining trocars were removed. All wounds were irrigated and skin was closed with 4-0 Monocryl in a subcuticular fashion. Steri-Strips were applied. The patient's anesthetic agents were reversed and extubation was completed prior to transfer to recovery in stable condition. Condition: stable Disposition: PACU Specimens:: Gallbladder and contents Complications:: No immediate
[2025-02-04] MEDS: 0.9 % SODIUM CHLORIDE 1000ML 1,000 ML 25 ML IV (06:39)
--- NOTE | 2025-02-04 06:59 | EXP.ANES.CKL ---
[facility] Disclaimer: The information contained in this section may have been updated after the patient was seen, as this information can be updated by other users. Medical History Glaucoma, left eye Muscle spasm Bowel obstruction 2015 Surgical History H/O tooth extraction History of tonsillectomy and adenoidectomy History of appendectomy History of partial hysterectomy 03/1980 Family History Other Family history of heart disease Social History (Updated 02/04/25 @ 06:25 by Kassie Rivera RN) Smoking Status: Never smoker alcohol intake: never substance use type: denies use current occupational status: retired Travel in the last 8 weeks?: None [facility] Anesthesia Checklist Patient Identification Patient Identification: Arm Band and Family Structural Data Admitted From: Home Planned Operative Procedure/s: Lap Yudith Consent for Planned Operative Procedure(s) Verified: Yes Verified Documents: Surgical Consent and History and Physical NPO Status Verified Time NPO: 00:00 Additional verifications Patient : No Anesthesia Reactions: Yes (trouble waking up after surgery) Hx Blood Transfusions: No Blood Transfusion Reaction: No Cephalosporin Allergy: No Previous Colonoscopy: Yes Airway Assessment Mallampati Score:: Class II C-Spine Mobility Assessed: Yes TMJ Mobility Assessed: Yes Dentition: Edentulous Neurological Assessment Level of Consciousness: Awake, Alert, Appropriate and Follows Commands Hx Seizures: No Numbness or tingling in extremities: No Anesthesia Plan Anesthesia Risk discussed: Yes ASA Class: II Anesthesia Type: General
[2025-02-04] MEDS: 0.9 % SODIUM CHLORIDE 50 ML 100 ML IV (07:00)
[2025-02-04] MEDS: CEFAZOLIN SODIUM 1GM ADV 1 GM IV (07:00)
[2025-02-04] MEDS: LIDOCAINE 1% 20ML MDV 20 ML (07:38)
[2025-02-04] MEDS: SODIUM CHLORIDE IRRIG SOLUTION 3,000 ML 200 ML IR (07:40)
--- NOTE | 2025-02-04 08:34 | EXP.ANES.I ---
[facility] Anesthesia Record Part I Anesthesia Record I Intake, IV Amount: 650 Hydration: Adequate Estimated blood loss (mL): 15 Urine output (mL): 0 Blood Products used (#): none Blood Pressure: 147/75 SaO2: 97 Pulse Rate: 61 Airway Patency: Patent Respiratory Rate: 12 Temperature: 98 F Patient is:: Drowsy and Stable Stable to PACU at:: 08:25
--- NOTE | 2025-02-05 16:38 | EXP.ANES.II ---
[facility] Anesthesia Record Part II Anesthesia Record Part II Discharge Time: 09:37 Destination: Surgical Day Care (OP Surgery) PACU nurse assessment reviewed?: Yes Patient Condition:: Good Anesthesia Complications:: None Swallowing reflex intact?: Yes Airway Patency: Patent Cyanosis?: No Blood Pressure: 187/64 SaO2: 97 Respiratory Rate: 16 Pulse Rate: 71 Temperature: 97.2 F Mental Status: Alert & Oriented Pain level:: 0 Nausea and/or vomitting:: None Intake, IV Amount: 0 Hydration: Adequate
[2025-02-05 16:39] VITALS: BP 187/64; PULSE 71; RESP 16; TEMP 36.2; O2SAT 97
== END 2025-02-04 10:16 | disposition home or self-care (01) ==
PROVIDERS: PCP Internal Medicine; Visit Provider Surgery
PROC: 0FT44ZZ Resection of Gallbladder, Percutaneous Endoscopic Approach (ICD-10-PCS; CPT 47562; principal; 2025-02-04 07:30)
DX: K80.10 Calculus of gallbladder with chronic cholecystitis without obstruction (principal); K85.10 Biliary acute pancreatitis without necrosis or infection
CPT/HCPCS: 47562; 88304; 96374; J0690; J1100; J2003; J2250; J2405; J2704; J3010; J7030